=== PATIENT | male | born 1945 | race Caucasian/White ===

== ENCOUNTER → 2016-04-27 | Day surgery (SDC) | payer OTHER ==
[~2016-04-27] MED LIST: ACETAMINOPHEN 1000 MG/100 ML VIAL IV ONE; BUPIVACAINE/EPINEPHRINE 0.25% 50 ML VIAL ONE; KETOROLAC TROMETHAMINE 30 MG/ML (IVP) VIAL IV PUSH ONE; LACTATED RINGER'S 1000 ML INJ 1,000 ML ONE; LIDOCAINE 1%/EPINEPHrine 1:100,000 SOLN 20 ML VIAL ONE; MIDAZOLAM HCL 2 MG/2 ML VIAL ONE; ONDANSETRON HCL 4 MG/2 ML VIAL IV PUSH ONE; PROPOFOL 200 MG/20 ML AMP IV ONE; SODIUM CHLOR 0.9% 250 ML INJ 250 ML IV ONE; VANCOMYCIN HCL 1000 MG VIAL ONE; ceFAZolin INJ 1,000 MG VIAL ONE
--- NOTE | 2016-04-29 10:55 | MP ---
cc: DIPIKA ABRAMS M.D., KASHYAP M.D. DATE OF SURGERY: 04/27/2016 PROCEDURE Left inguinal hernia repair with mesh. PREOPERATIVE DIAGNOSIS Symptomatic reducible left inguinal hernia. POSTOPERATIVE DIAGNOSIS Symptomatic reducible left inguinal hernia, indirect. ANESTHESIA LMA. SURGEON Kev Abrams MD. TEXTILE BROKER: KALIA Pham The [employer] was present throughout the entire procedure. Her presence was required for retraction, exposure and assistance in all aspects of the case. The surgical scrub technician passed instruments and was utilized for that purpose. As the patient was slightly obese, he required exposure of the tissues by the [employer]. ESTIMATED BLOOD LOSS Less than 30 mL FLUIDS: 900 mL Crystalloid COMPLICATIONS None. DRAINS: None. SPECIMEN: None. DESCRIPTION OF PROCEDURE: The patient was seen in the holding area and the left side marked by the undersigned and confirmed by the patient. He was taken to the operating room and placed on the operating table in the supine position. After an adequate level of laryngeal mask anesthesia was instituted the left groin was shaved, prepped and draped. Time-out was taken confirming the correct patient site and procedure to be performed. Skin and subcutaneous tissue was infiltrated with local anesthetic and an incision made in the left groin and carried down to the hernia. The external oblique fascia was identified and slit in the direction of the fibers. The fascia was elevated and the underlying tissue swept free. The iliohypogastric nerve was left in its [place] sheath and was not dissected off of the fascia. Care was taken to preserve the nerve along its entire length as well as its perforation through the external oblique fascia. The cord structures were then brought up on a Erwin drain. The patient was noted to have an indirect defect and this was dissected off of the cord structures. The hernia sac was entered at one point and this was then closed with 2-0 silk suture ligature in a pursestring fashion. No bowel contents appeared to be within the hernia itself. The entire hernia was reduced into the abdominal cavity as well as a small amount of fatty tissue that was along the cord structures. When this had been reduced, a 3 x 6 inch piece of atrium mesh was brought up and transfixed to the pubic tubercle with a 2-0 Prolene suture. This was then run along the shelving edge of the inguinal ligament to complete the lateral edge of the repair. The mesh was then slit longitudinally to allow for egress of the cord structures. The mesh was then trimmed on one corner to have it fit the defect perfectly. Interrupted 2-0 Prolene sutures were then used medially to close the defect. Care was taken to place no sutures near the iliohypogastric nerve. The medial leaf of mesh was brought over the lateral leaf and transfixed to the inguinal ligament at two places with an additional third Prolene suture placed to close the internal ring down further. This allowed for egress of the cord structures but was small enough to minimize the risk of recurrence of the hernia through the newly created internal ring. When this was completed, 30 mL of 0.25% Marcaine with epinephrine was injected into the transversalis fascia and subcutaneous tissues. The external oblique fascia was then closed with a running 3-0 Vicryl suture with care taken to exclude the underlying tissues and particularly the iliohypogastric nerve from the closure. The wound was closed with interrupted 3-0 Vicryl suture and the skin closed with 5-0 PDS in a running subcuticular fashion. The wound was dressed with Telfa and Tegaderm. The patient was taken back to the recovery room in stable condition. He tolerated the procedure well. MD LEYDI Case/CARLOTA /9:52 AM /10:38 AM
== END | disposition home or self-care (01) ==
LOC: ESDC 06:07
PROVIDERS: ATTEND Surgery Trauma Surgery
DX: K40.90 Unilateral inguinal hernia, without obstruction or gangrene, not specified as recurrent (principal)
CPT/HCPCS: 00830; 49505; C1781; J0131; J0690; J1885; J2250; J2405; J3010; J3370; J7050; J7120